=== PATIENT | female | born 1990 ===

== ENCOUNTER 2023-11-16 11:01 | Emergency (ER) | payer OTHER, SELFPAY ==
--- NOTE | ~2023-11-16 | XR_ITS ---
EXAMINATION: Lumbar sacral spine series sacral coccyx series CLINICAL INFORMATION: Slip and fall onto tailbone COMPARISON: None. TECHNIQUE: 4 views of lumbar sacral spine. 3 views of the sacrum/coccyx FINDINGS: Sacrum/coccyx: Intact. No fracture. There is increased sclerosis on the iliac side of the SI joints. Lumbar sacral spine: There is mild convex right curvature of the thoracolumbar junction region. Vertebral bodies otherwise normally aligned. There is a transitional lumbar sacral junction. There is no fracture. Disc spaces normal. Facets normal. Surrounding soft tissues normal. XR/XR lumbar spine 2-3V IMPRESSION: 1. No acute abnormality. 2. Sacrum/coccyx: No fracture. 3. Mild scoliosis versus curvature related to positioning 4. Osteitis condensans ilii bilaterally.
--- NOTE | ~2023-11-16 | CT_ITS ---
EXAMINATION: CT SACRUM AND COCCYX CLINICAL INFORMATION: Fall onto tailbone with question of fracture COMPARISON: Negative radiographs of the lumbosacral spine and coccyx earlier today TECHNIQUE: Multidetector volumetric imaging was performed through the sacrum and coccyx. Sagittal and coronal reformatted images were obtained on the technologist's workstation. This CT examination was performed using dose optimization techniques as appropriate, variously including the following: *Automated exposure control *Adjustment of mA and/or kV according to patient size (this includes techniques or standardized protocols for targeted exams where dose is matched to indication/reason for exam; i.e. extremities or head) *Use of iterative reconstruction technique DLP: 404 mGy-cm FINDINGS: Sclerotic changes are present at the SI joints. No acute sacral or coccygeal fracture is seen. L5 and S1 appear unremarkable. A small triangular bone fragment seen with sclerotic margins adjacent to the upper sacrum probably congenital or related to remote trauma The visualized retroperitoneum appears on unremarkable. A small amount of free fluid is present in the cul-de-sac. CT/CT sacrum IMPRESSION: 1. No evidence of an acute fracture. 2. Incidental note made of sclerotic changes at the SI joints and a small amount of free fluid in the cul-de-sac. Fleischner guidelines were followed.
--- NOTE | ~2023-11-16 | XR_ITS ---
EXAMINATION: Lumbar sacral spine series sacral coccyx series CLINICAL INFORMATION: Slip and fall onto tailbone COMPARISON: None. TECHNIQUE: 4 views of lumbar sacral spine. 3 views of the sacrum/coccyx FINDINGS: Sacrum/coccyx: Intact. No fracture. There is increased sclerosis on the iliac side of the SI joints. Lumbar sacral spine: There is mild convex right curvature of the thoracolumbar junction region. Vertebral bodies otherwise normally aligned. There is a transitional lumbar sacral junction. There is no fracture. Disc spaces normal. Facets normal. Surrounding soft tissues normal. XR/XR sacrum coccyx min 2V IMPRESSION: 1. No acute abnormality. 2. Sacrum/coccyx: No fracture. 3. Mild scoliosis versus curvature related to positioning 4. Osteitis condensans ilii bilaterally.
[2023-11-16 11:33] VITALS: BP 123/64; PULSE 70; RESP 15; TEMP 36.8; O2SAT 95; BMI 36.2
--- NOTE | 2023-11-16 13:15 | ED_ITS ---
HPI - Fall General Chief Complaint: Fall Stated Complaint: FALL PER EMS Time Seen by Provider: 11/16/23 13:15 Source: patient and EMS Mode of arrival: EMS Limitations: no limitations History of Present Illness ED Provider: GINI PALMA PA-C HPI Narrative: 33-year-old female with pmhx significant for scoliosis, status post coccyx fracture in 2019 presents to the ED today via EMS from work for evaluation of tailbone pain s/p mechanical fall prior to arrival in ED. patient states that as she was entering the bathroom at work when she slipped on a wet portion of the tiled floor and landed directly onto her tailbone. Denies head strike or LOC. not on AC. she reports immediate pain to the tailbone. She required assistance to stand and EMS was called for transport to ED. She endorses some radiation into the left hip/thigh. Denies fever, chills, saddle anesthesia, numbness/tingling/weakness of the lower extremities, bowel or bladder incontinence or retention, dysuria, hematuria. Related Data Previous Rx's ?Medication ?Instructions ?Recorded morphine 15 mg immediate release 15 mg PO Q6H PRN severe pain 11/16/23 tablet (scale score 7-10) #8 tabs Allergies Allergy/AdvReac Type Severity Reaction Status Date / Time No Known Allergies Allergy Verified 11/16/23 11:41 Review of Systems Review of Systems: Constitutional: No fever, chills, fatigue, night sweats, weight changes ENT/Mouth: No ear pain, hearing loss, nasal congestion, sinus pain, rhinorrhea, sore throat Eyes: No eye pain, swelling, redness, vision changes, discharge Cardio: No chest pain, palpitations, MCKEON, orthopnea, peripheral edema Pulm: No SOB, cough, sputum, wheezing, dyspnea, hemoptysis GI: No nausea, vomiting, hematemesis, abdominal pain, diarrhea, constipation, hematochezia, melena : No irregular bleeding, dysuria, frequency, urgency, hesitancy, hematuria, flank pain, urinary flow changes, urinary incontinence or retention MSK: No neck pain, joint pain, myalgias, +back/tailbone pain Skin: No lesions, rashes Neuro: No weakness, numbness, paresthesias, LOC, dizziness, headache Psych: No anxiety/panic, depression, SI/HI, AH/VH All other systems reviewed and are negative. [facility] Past Medical History Attestation statement: The following information was validated with the patient. Source: old records reviewed and nursing notes reviewed Social History Social History Advance Directives: No Advance Directives Information Provided: No Physical Exam Vital Signs: Vital Signs: Last Vital Signs Temp 98.0 F 11/16/23 20:30 Pulse 68 11/16/23 20:30 Resp 16 11/16/23 20:30 BP 112/62 11/16/23 20:30 Pulse Ox 97 11/16/23 20:30 O2 Del Method Room Air 11/16/23 20:30 BMI result Body Mass Index 36.2 Vital signs stable, afebrile Const: General: cooperative, healthy appearing, comfortable and no acute distress Orientation/consciousness: patient oriented x3 Limitations: no limitations HEENT: Head: Yes normal to inspection, Yes No palpable skull fracture present, Yes normocephalic, Yes atraumatic, No Ruelas's sign, No raccoon eyes and No periorbital ecchymosis Eyes: General: appearance normal, both eyes and all related structures Pupils: Equal, round and reactive pupils present EOM: EOMs intact bilaterally Neck: Other: + no cervical midline spinous tenderness or step-off deformity. Neck: Yes normal visual inspection, Yes full ROM and Yes no meningeal signs Chest: Chest palpation & inspection: normal inspection of the chest and normal palpation of entire chest wall Resp: Effort & Inspection: normal respiratory effort and able to speak in complete sentences Auscultation: clear to auscultation bilaterally Cardio: Rate: regular rate Rhythm: regular rhythm GI: Inspection: Yes normal to inspection and No abdominal wall ecchymosis Palpation (GI): Soft to palpation and nontender : General: Yes no CVA tenderness Back/Spine/Pelvis: Other: + Point tenderness over sacrum without p alpable deformity or step off. Unable to assess ambulation due to discomfort. Sensation intact to light touch throughout. Strength 5/5 intact throughout. NV intact distally. 2+ patellar DTRs intact. Back: no CVA tenderness Skin: General skin exam: no rashes or lesions noted Neuro: Other: Strength 5/5 intact throughout.? No saddle anesthesia.? Sensation intact to light touch.? Neurovascular intact distally.? General: patient oriented x3, gait normal and no meningeal signs Cranial nerves: Yes Equal, round and reactive pupils present Gait exam (Neuro): Normal gait present Extrem: General: Yes normal to inspection Course Course Course Narrative: 1515-- On re-evaluation, patient continues to report discomfort after receiving toradol. 5mg po oxy ordered for comfort. imaging still pending. will continue to monitor. 164-- X-ray sacrum/coccyx without fracture, there is mild scoliosis. On re- evaluation, patient continues to have point tenderness over the sacrum. CT sacrum ordered to definitively rule out fracture. Patient agreeable to this. She was stable at the end of my shift. Sign-out given to Pasquale COLON pending CT and disposition. Reevaluation(s) Reevaluation #1: Patient reports very minimal relief with oxycodone. CT scan shows CT/CT sacrum IMPRESSION: 1. No evidence of an acute fracture. 2. Incidental note made of sclerotic changes at the SI joints and a small amount of free fluid in the cul-de-sac. Fleischner guidelines were followed. I discussed these finding with the patient, she has no acute fractures. She is requesting something else for pain. We will trial morphine 4 mg IM. Time: 19:40 Medications Administered Discontinued Medications Generic Name Dose Route Start Last Admin Trade Name Freq PRN Reason Stop Dose Admin Ketorolac Tromethamine 60 mg 11/16/23 13:22 11/16/23 13:58 Ketorolac Tromethamine 60 Mg/2 Ml Vial IM 11/16/23 13:23 60 mg ONCE ONE Administration Morphine Sulfate 4 mg 11/16/23 19:39 11/16/23 20:06 Morphine Sulfate 4 Mg/Ml Cartridge IM 11/16/23 19:40 4 mg ONCE ONE Administration Protocol Ondansetron HCl 4 mg 11/16/23 19:39 11/16/23 20:07 Ondansetron Odt 4 Mg Tab.Rapdis TRANSLINGU 11/16/23 19:40 4 mg ONCE ONE Administration Oxycodone HCl 5 mg 11/16/23 15:32 11/16/23 15:59 Oxycodone Hcl Immed Release 5 Mg Tablet PO 11/16/23 15:33 5 mg ONCE ONE Administration Medical Decision Making Medical Decision Making [facility] Narrative: 33-year-old female with pmhx significant for scoliosis, status post coccyx fracture in 2019 presents to the ED today via EMS from work for evaluation of tailbone pain s/p mechanical fall prior to arrival in ED. vital signs stable, afebrile. She is nontoxic appearing in no acute distress. On exam appears somewhat uncomfortable lying on side. Point tenderness over sacrum without palpable deformity or step off. Unable to assess ambulation due to discomfort. Sensation intact to light touch throughout. Strength 5/5 intact throughout. NV intact distally. 2+ patellar DTRs intact. No CVAT. Concern for MSK sprain/strain, fracture, subluxation, disc herniation, sciatica. Unlikely cord compression, cauda equina, Guillain-[place], epidural abscess. Plan for imaging, pain control, and re-evaluation. Differential Diagnosis Differential Diagnoses: The differential diagnosis associated with the presentation includes as above Admission/Observation Not indicated. Lab Data [facility] Lab Attestation statement: I reviewed the patient's lab results. as above. Labs: Lab Results 11/16/23 Range/Units 16:37 Beta HCG, Quant < 2 mIU/mL Independent Interpretation I performed an independent interpretation of an: Plain X-Ray and CT Scan Interpretation: XR coccyx/ lumbar spine without acute fracture, agree with radiologist's interpretation. CT sacrum without acute fracture, agree with radiologist's interpretation. Radiology Impression Discussion of test interpretation with radiology: I have reviewed the radiologist's reading. Radiologist Impression: EXAMINATION: Lumbar sacral spine series sacral coccyx series CLINICAL INFORMATION: Slip and fall onto tailbone COMPARISON: None. TECHNIQUE: 4 views of lumbar sacral spine. 3 views of the sacrum/coccyx FINDINGS: Sacrum/coccyx: Intact. No fracture. There is increased sclerosis on the iliac side of the SI joints. Lumbar sacral spine: There is mild convex right curvature of the thoracolumbar junction region. Vertebral bodies otherwise normally aligned. There is a transitional lumbar sacral junction. There is no fracture. Disc spaces normal. Facets normal. Surrounding soft tissues normal. XR/XR lumbar spine 2-3V IMPRESSION: 1. No acute abnormality. 2. Sacrum/coccyx: No fracture. 3. Mild scoliosis versus curvature related to positioning 4. Osteitis condensans ilii bilaterally. EXAMINATION: CT SACRUM AND COCCYX CLINICAL INFORMATION: Fall onto tailbone with question of fracture COMPARISON: Negative radiographs of the lumbosacral spine and coccyx earlier today TECHNIQUE: Multidetector volumetric imaging was performed through the sacrum and coccyx. Sagittal and coronal reformatted images were obtained on the technologist's workstation. This CT examination was performed using dose optimization techniques as appropriate, variously including the following: *Automated exposure control *Adjustment of mA and/or kV according to patient size (this includes techniques or standardized protocols for targeted exams where dose is matched to indication/reason for exam; i.e. extremities or head) *Use of iterative reconstruction technique DLP: 404 mGy-cm FINDINGS: Sclerotic changes are present at the SI joints. No acute sacral or coccygeal fracture is seen. L5 and S1 appear unremarkable. A small triangular bone fragment seen with sclerotic margins adjacent to the upper sacrum probably congenital or related to remote trauma The visualized retroperitoneum appears on unremarkable. A small amount of free fluid is present in the cul-de-sac. CT/CT sacrum IMPRESSION: 1. No evidence of an acute fracture. 2. Incidental note made of sclerotic changes at the SI joints and a small amount of free fluid in the cul-de-sac. Fleischner guidelines were followed. External Record Review External record reviewed: Inpatient record Prescription Management I considered prescription management with: Pain Medication Social Determinants Patient?s care significantly limited by Social Determinants of Health including: Other Social Determinant of Health Critical Care Time Critical Care Time Critical Care Time: No Discharge Plan Discharge Clinical Impression: Pain in sacrum Patient Disposition: Home, Self-Care Instructions: Acute Low Back Pain (ED) Additional Instructions: I recommend using ibuprofen/Tylenol for pain You may use morphine as needed for severe breakthrough pain This may make you sleepy, did not drink alcohol or drive after taking it Follow-up with your primary doctor Return for new or worsening symptoms Prescriptions: New morphine 15 mg tablet 15 mg PO Q6H PRN (Reason: severe pain (scale score 7-10)) Qty: 8 0RF Rx Instructions: Partial Fill upon patient request. Stand Alone Forms: Work/School Release Interventions: ED Discharge Assessment Last Done: 11/16/23 20:30 Discharge Date/Time: 11/16/23 20:32 Print Language: Frisian
[2023-11-16] MEDS: Ketorolac Tromethamine 60 MG/2 ML VIAL IM (13:58)
[2023-11-16 15:10] VITALS: BP 111/50; PULSE 79; RESP 14; TEMP 36.4; O2SAT 97
[2023-11-16] MEDS: oxyCODONE HCl Immed Release 5 MG TABLET PO (15:59)
[2023-11-16 17:06] LABS: HCG Quantitative < 2 mIU/mL
[2023-11-16 19:08] VITALS: BP 109/59; PULSE 73; RESP 17; TEMP 36.7; O2SAT 97
--- NOTE | 2023-11-16 19:14 | PC.NURSE ---
Pt lying on stretcher, no acute distress at this time. Pending CT read for disposition. Pt C/O pain at this time.
[2023-11-16] MEDS: Morphine Sulfate 4 MG/ML CARTRIDGE IM (20:06)
[2023-11-16] MEDS: Ondansetron ODT 4 MG TAB.RAPDIS TRANSLINGU (20:07)
[2023-11-16 20:30] VITALS: BP 112/62; PULSE 68; RESP 16; TEMP 36.7; O2SAT 97
== END 2023-11-16 20:32 | disposition home or self-care (01) ==
PROVIDERS: Physician Assistant Medical; Emergency Provider Emergency Medicine; PCP Internal Medicine
DX: M53.3 Sacrococcygeal disorders, not elsewhere classified (principal)
CPT/HCPCS: 36415; 72100; 72192; 72220; 84702; 96372; 99284; J1885; J2270